=== PATIENT | female | born 2000 | race Hispanic/Latino ===

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

== ENCOUNTER 2024-04-28 16:30 | Observation (INO) | payer MEDICAID ==
[~2024-04-28] VITALS: Ht 165.1 cm; Wt 104.3 kg
[2024-04-28 17:12] LABS: APPEARANCE,URINE CLEAR (CLEAR); BILIRUBIN,URINE NEGATIVE (NEGATIVE); COLOR,URINE LIGHT-YELLOW (YELLOW); GLUCOSE, URINE (UA) NEGATIVE (NEGATIVE); KETONES,URINE NEGATIVE (NEGATIVE); LEUKOCYTE ESTERASE ,URINE 25 Leu/uL (NEGATIVE); NITRATE,URINE NEGATIVE (NEGATIVE); OCCULT BLOOD,URINE NEGATIVE (NEGATIVE); PH,URINE 6.5 (5.0-8.0); PROTEIN,URINE 10 mg/dL (NEGATIVE); UROBILINOGEN,URINE 0.2 mg/dL (0.2-1.0)
[2024-04-28 17:15] LABS: ADD UA MICROSCOPIC YES
[2024-04-28 17:18] LABS: BACTERIA,URINE RARE /HPF (None Seen); MUCUS,URINE RARE LPF (None Seen); RBC,URINE 0-1 /HPF (0-1); SQUAMOUS EPITHELIAL CELL,UR RARE /HPF (0-2)
== END 2024-04-28 18:25 | disposition home or self-care (01) ==
LOC: LDH 16:30
PROVIDERS: ADMIT Obstetrics & Gynecology; ATTEND Obstetrics & Gynecology
DX: O99.891 Other specified diseases and conditions complicating pregnancy (principal); M54.50 Low back pain, unspecified; O26.893 Other specified pregnancy related conditions, third trimester; R10.2 Pelvic and perineal pain; Z3A.39 39 weeks gestation of pregnancy
CPT/HCPCS: 76819; 81001; G0379; G0378; 59025

== ENCOUNTER 2024-05-02 06:00 | Inpatient (IN) | payer MEDICAID ==
[~2024-05-02] VITALS: Ht 165.1 cm; Wt 104.3 kg
[2024-05-02 06:26] LABS: APPEARANCE,URINE CLEAR (CLEAR); BILIRUBIN,URINE NEGATIVE (NEGATIVE); COLOR,URINE LIGHT-YELLOW (YELLOW); GLUCOSE, URINE (UA) NEGATIVE (NEGATIVE); KETONES,URINE NEGATIVE (NEGATIVE); LEUKOCYTE ESTERASE ,URINE 250 Leu/uL (NEGATIVE); NITRATE,URINE NEGATIVE (NEGATIVE); OCCULT BLOOD,URINE MODERATE (NEGATIVE); PROTEIN,URINE NEGATIVE (NEGATIVE); UROBILINOGEN,URINE 0.2 mg/dL (0.2-1.0)
[2024-05-02 06:29] LABS: ADD UA MICROSCOPIC YES
[2024-05-02 06:32] LABS: SQUAMOUS EPITHELIAL CELL,UR FEW /HPF (0-2)
[2024-05-02] MEDS ORDERED: PROMETHAZINE HCL 25 MG/ML 1ML AMPULE IM PRN (07:00)
[2024-05-02] MEDS ORDERED: AMPICILLIN 1GM+NS 50ML 50 ML IV SCH (07:00)
[2024-05-02] MEDS ORDERED: LACTATED RINGERS 500 ML 500 ML IV PRN (07:00)
[2024-05-02] MEDS ORDERED: MEPERIDINE-PF 50 MG/ML SYG IVP PRN (07:00)
[2024-05-02] MEDS ORDERED: OXYTOCIN-LR 30 UNITS/500ML 500 ML IV SCH (07:00)
[2024-05-02] MEDS ORDERED: EPHEDRINE SULFATE 50 MG/ML AMPULE IVP PRN (07:00)
[2024-05-02] MEDS ORDERED: NALOXONE HCL 0.4 MG/1 ML ML IV PRN (07:00)
[2024-05-02 07:29] LABS: HEMATOCRIT 34.6 % (36-48); MEAN CORPUSCULAR HEMOGLOBIN 24.9 pg (27.0-33.0); MEAN CORPUSCULAR HGB CONC 29.8 g/dL (32.0-36.0); MEAN CORPUSCULAR VOLUME 83.6 fL (79-99); PLATELET COUNT (AUTO) 271 K/uL (130-400); RED BLOOD CELL COUNT(AUTO) 4.14 MIL/uL (4.00-5.50); RED CELL DISTRIBUTION WIDTH 14.6 % (11.0-15.5); WHITE BLOOD COUNT (AUTO) 10.1 K/uL (4.8-10.8)
[2024-05-02] MEDS: AMPICILLIN 2GM+NS 100ML 100 ML IV SCH (07:33)
[2024-05-02] MEDS: ROPIVACAINE 0.2% 2MG/ML 100ML VIAL EP SCH (07:41)
[2024-05-02] MEDS ORDERED: LACTATED RINGERS 1000ML 1,000 ML IV SCH (08:00)
[2024-05-02] MEDS: OXYTOCIN-LR 30 UNITS/500ML 500 ML IV SCH ×2 (08:49→14:38)
[2024-05-02] MEDS ORDERED: LIDOCAINE HCL 1% 20 ML VIAL ONE (10:16)
[2024-05-02] MEDS ORDERED: METHYLERGONOVINE MALEATE 0.2 MG/1 ML ML ONE (10:16)
[2024-05-02] MEDS ORDERED: MISOPROSTOL 200 MCG TABLET ONE (10:16)
[2024-05-02] MEDS ORDERED: WITCH HAZEL 1 PAD TP PRN (11:30)
[2024-05-02] MEDS ORDERED: MEASLES/MUMPS/RUBELLA VACCINE, LIVE 0.5 ML/VIAL SQ PRN (11:30)
[2024-05-02] MEDS ORDERED: ACETAMINOPHEN 325 MG TAB PO PRN (11:30)
[2024-05-02] MEDS ORDERED: DIPH,PERTUSS(ACELL),TET VAC/PF 0.5 ML VIAL IM PRN (11:30)
[2024-05-02] MEDS ORDERED: LANOLIN 30GM OINTMENT TP PRN (11:30)
[2024-05-02] MEDS ORDERED: BENZOCAINE/LANOLIN/ALOE VERA 60 ML AEROSOL TP PRN (11:30)
[2024-05-02] MEDS: IBUPROFEN 600 MG TABLET PO PRN (14:52)
[2024-05-02 16:27] VITALS: BP 102/67; PULSE 111; RESP 18
[2024-05-02] MEDS: ACETAMINOPHEN WITH CODEINE 1 TAB TAB PO PRN (16:27)
[2024-05-02 19:30] VITALS: BP 126/73; PULSE 70; RESP 20
[2024-05-02 19:42] VITALS: BP 126/73; PULSE 70; RESP 19
[2024-05-02] MEDS: DOCUSATE SODIUM 100 MG CAP PO SCH (21:02)
[2024-05-02 23:35] VITALS: BP 117/61; PULSE 82; RESP 19
[2024-05-03] VITALS: BP 117/61; PULSE 82; RESP 19
[2024-05-03 03:56] VITALS: BP 126/81; PULSE 64; RESP 19
[2024-05-03 04:00] VITALS: BP 126/81; PULSE 64; RESP 18
[2024-05-03 06:47] LABS: HEMATOCRIT 31.4 % (36-48); MEAN CORPUSCULAR HGB CONC 30.6 g/dL (32.0-36.0); MEAN CORPUSCULAR VOLUME 81.8 fL (79-99); RED BLOOD CELL COUNT(AUTO) 3.84 MIL/uL (4.00-5.50); RED CELL DISTRIBUTION WIDTH 14.1 % (11.0-15.5); WHITE BLOOD COUNT (AUTO) 9.2 K/uL (4.8-10.8)
[2024-05-03 07:45] VITALS: BP 118/72; PULSE 74; RESP 18
[2024-05-03 12:00] VITALS: BP 118/60; PULSE 87; RESP 16
[2024-05-03] MEDS: DIPH,PERTUSS(ACELL),TET VAC/PF 0.5 ML VIAL IM PRN (13:57)
[2024-05-03] MEDS ORDERED: PREN1TAB80 PO ×2 (15:10)
[2024-05-03 15:40] VITALS: BP 111/77; PULSE 76; RESP 14
== END 2024-05-03 16:00 | disposition home or self-care (01) | DRG 560 ==
LOC: EDH 06:00 → LDH 06:01 → OBSVTOIN 06:01 → WSH 14:17
PROVIDERS: ADMIT Obstetrics & Gynecology; ATTEND Obstetrics & Gynecology
PROC: 10907ZC Drainage of Amniotic Fluid, Therapeutic from Products of Conception, Via Natural or Artificial Opening (ICD-10-PCS; principal; 2024-05-02)
PROC: 10E0XZZ Delivery of Products of Conception, External Approach (ICD-10-PCS; 2024-05-02)
PROC: 3E0R3BZ Introduction of Anesthetic Agent into Spinal Canal, Percutaneous Approach (ICD-10-PCS; 2024-05-02)
PROC: 00HU33Z Insertion of Infusion Device into Spinal Canal, Percutaneous Approach (ICD-10-PCS; 2024-05-02)
DX: O80 Encounter for full-term uncomplicated delivery (principal); Z37.0 Single live birth; Z3A.39 39 weeks gestation of pregnancy
CPT/HCPCS: 36415; 81001; 85027; 86592; 86850; 86900; 86901; 87086; 87340; 90715; J0290; J2210; J2795